=== PATIENT | female | born 1945 | race Caucasian/White ===

== ENCOUNTER 2016-06-11 13:22 | Emergency (ER) | payer MEDICARE, BC ==
[2016-06-11] MEDS ORDERED: Budesonide 0.5 MG/2 ML Neb Susp ONE (13:45)
[2016-06-11] MEDS ORDERED: Levofloxacin 750 MG Tab ONE (13:45)
[2016-06-11] MEDS ORDERED: predniSONE 10 MG Tab ONE (13:45)
--- NOTE | 2016-06-11 14:53 | ER ---
HISTORY OF PRESENT ILLNESS: A 71-year-old lady, here with complaints of a flare up of COPD. She has been having some episodes of shortness of breath and coughing for the last 2 weeks. States this has been on and off. It seemed like it got worse today at one point, but now on the way in to the hospital, she states her symptoms significantly improved again. She has been coughing up phlegm just occasionally, and has noticed wheezing and tightness more routinely. The patient has not been running a fever. She does use oxygen at home at night. She states that she has a DuoNeb treatment that she takes as needed at home. She had been using it 4 times a day yesterday and 2 times a day so far today. She also was on Advair before, but did not like it and quit taking it. PAST MEDICAL HISTORY: COPD. OBJECTIVE: GENERAL APPEARANCE: The patient is awake and alert, in no obvious distress. VITAL SIGNS: Reviewed. O2 sats are in the mid 90s on room air. Blood pressure is good. She is afebrile. PHYSICAL EXAM: Ears, TMs are normal. Nares are patent. Oral mucous membranes are moist. Tonsils are not enlarged or injected. Pharynx not inflamed. NECK: Supple. LUNG: Exam reveals slightly reduced air exchange throughout the lung moran and there are scattered wheezes. I do not hear any rales or rhonchi. SKIN: Warm and dry. DIAGNOSIS: COPD with mild exacerbation. TREATMENT PLAN: We discussed doing labs and a chest x-ray. The patient was also given the option of adjusting her medications and trying this without doing lab workup, and she does not want to do lab tests if not needed. I advised her that she is stable right now without symptoms. I would feel comfortable treating her without any lab or x-ray workup at this time. Medications will be Pulmicort 0.5 mg/unit dose. She is to start on 1 unit dose per nebulizer b.i.d. Also, prednisone will be started at 40 mg daily and Levaquin 750 mg once a day. The patient is to continue taking her DuoNebs q.i.d. Activity should be minimal, as tolerated. She is to continue using oxygen as needed. Followup should be in the clinic. They are to call the clinic on Monday for a followup appointment. Followup should be here sooner p.r.n. CRS/MODL /[id number]
[2016-06-11 16:12] VITALS: BP 132/78
== END 2016-06-11 14:15 | disposition home or self-care (01) ==
LOC: LB.ED 13:22
DX: J44.1 Chronic obstructive pulmonary disease with (acute) exacerbation (principal)
CPT/HCPCS: 99283; A9270; 99282

== ENCOUNTER 2018-05-19 14:01 | Emergency (ER) | payer MEDICARE, BC ==
--- NOTE | 2018-05-19 17:08 | EDM.PDOC ---
ED HPI GENERAL MEDICAL PROBLEM - General Stated Complaint: R LEG PAIN Time Seen by Provider: 05/19/18 14:10 Source of Information: Reports: Patient History Limitations: Reports: No Limitations - History of Present Illness INITIAL COMMENTS - FREE TEXT/NARRATIVE: According to patient she claims that she was walking from kitchen into the living area of the house this morning. She tripped against her treadmill, and her legs twisted around somehow and she fell. Since then she has been having pain in the left thigh. Pain is over the posterior aspect of the right thigh. If she weight bears the pain radiates into her lower buttock. No swelling or bruising of the leg or thigh.. Pain is so severe that she cannot walk, but can weight bear on it. No swelling of the right knee. Pt claims she had hurts her right thigh from a fall about 1 wk ago, and the pain was in the same area but not as bad as today. No other complaints. Onset: Today Severity: Moderate Improves with: Reports: Immobilization Worsens with: Reports: Movement Associated Symptoms: Denies: Confusion, Chest Pain, Cough, Diaphoresis, Fever/ Chills, Headaches, Loss of Appetite, Nausea/Vomiting, Rash, Seizure, Shortness of Breath, Syncope, Weakness - Related Data Allergies Allergy/AdvReac Type Severity Reaction Status Date / Time No Known Allergies Allergy Verified 05/19/18 14:32 Home Meds: Home Meds Aspirin 81 mg PO DAILY 06/11/16 [History] Benazepril/Hydrochlorothiazide [Benazepril-HCTZ 20-12.5 MG] 12.5 - 20 mg PO DAILY 06/11/16 [History] Insulin Aspart [NovoLOG] 4 - 6 units SQ BID 06/11/16 [History] Insulin Aspart [Novolog Flexpen] 2 units SQ DAILY 06/11/16 [History] Insulin Glarg,Human.Rec.Analog [Lantus Solostar] 40 units SQ DAILY 06/11/16 [ History] Metoclopramide [Reglan] 5 mg PO TID 06/11/16 [History] Metoprolol Succinate [Toprol Xl] 100 mg PO DAILY 06/11/16 [History] Omeprazole 20 mg PO DAILY 06/11/16 [History] amLODIPine [Norvasc] 5 mg PO DAILY 06/11/16 [History] atorvaSTATin [Lipitor] 40 mg PO DAILY 06/11/16 [History] buPROPion HCl [Wellbutrin Xl] 300 mg PO DAILY 06/11/16 [History] metFORMIN HCl [Metformin HCl] 500 mg PO TID 06/11/16 [History] Past Medical History Respiratory History: Reports: COPD, SOB, Other (See Below) Other Respiratory History: copd x 15 years, still smokes Genitourinary History: Reports: UTI, Recurrent Other Genitourinary History: on homonal replacement 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: Musculoskeletal History: Reports: Arthritis Psychiatric History: Reports: Depression Endocrine/Metabolic History: Reports: Diabetes, Type II Oncologic (Cancer) History: Reports: Uterine - Infectious Disease History Infectious Disease History: Reports: C-Difficile, Chicken Pox, Measles, Mumps, Pertussis (Whooping Cough), Rubella - Past Surgical History Musculoskeletal Surgical History: Reports: Hip Replacement Social & Family History - Family History Family Medical History: Noncontributory Respiratory: Reports: COPD - Caffeine Use Caffeine Use: Reports: Coffee ED ROS GENERAL - Review of Systems Review Of Systems: See Below Constitutional: Denies: Fever, Chills HEENT: Denies: Dental Pain, Rhinitis, Sinus Problem, Throat Swelling Respiratory: Denies: Cough, Sputum Cardiovascular: Denies: Chest Pain, Lightheadedness GI/Abdominal: Denies: Abdominal Pain, Nausea, Vomiting : Denies: Flank Pain, Frequency Musculoskeletal: Reports: Leg Pain, Muscle Pain Skin: Denies: Bruising, Pruritis, Rash ED EXAM, GENERAL - Physical Exam Exam: See Below Exam Limited By: No Limitations General Appearance: Alert, WD/WN, Mild Distress Eye Exam: Bilateral Eye: EOMI, PERRL Ears: Normal External Exam, Normal Canal, Hearing Grossly Normal, Normal TMs Ear Exam: Bilateral Ear: Auricle Normal, Canal Normal, TM normal Nose: Normal Inspection, Normal Mucosa, No Blood Throat/Mouth: Normal Inspection, Normal Lips, Normal Teeth, Normal Gums, Normal Oropharynx, Normal Voice, No Airway Compromise Head: Atraumatic, Normocephalic Neck: Normal Inspection, Supple, Non-Tender, Full Range of Motion Respiratory/Chest: No Respiratory Distress, Lungs Clear, Normal Breath Sounds, No Accessory Muscle Use, Chest Non-Tender Cardiovascular: Normal Peripheral Pulses, Regular Rate, Rhythm, No Edema, No Gallop, No JVD, No Murmur, No Rub Extremities: Normal Inspection, No Pedal Edema, Normal Capillary Refill, Other ( Right lower extremity: There is no obvious deformtiy of swelling noted over the lower extremity. Normal examination of the ankle. On knee exam, the kne is non tender to palpation. She does have good extension, but flexion of the leg cuase pain in the mid thigh posteriorly. On palpation, pt is tender in the hamstriing muscles in the mid 13. No skin brusing or balling of the muscle. PAinful felxion of the leg. ) Neurological: Alert, Oriented, CN II-XII Intact, Normal Cognition, Normal Gait, Normal Reflexes, No Motor/Sensory Deficits Skin Exam: Warm, Intact Course - Vital Signs Text/Narrative:: Pt appear to have strained her right hamstring muscles. But there is no swelling or bruising. Chance of tear is low. Also flexion of the knee joint causes severe pain in the midthigh posteriorly, which is consistent with hamstring injury. Pt can weight bear, but mild flexion during walking cause severe pain. Pt was reassured that she has strained the hamstring muscle with the fall. Knee brace was applied t prevent flexion of the knee. Advised to walk like a duck. Pt was able to walk without pain. I have advised pt cold compresses for 24 hrs and then alternate heat and cold. Also alternate tylenol with motrin 400mg every 4 hrs for pain. Once pain improve should try physical therapy. Followup in clinic if symptoms worsen. Departure - Departure Time of Disposition: 14:45 Disposition: Home, Self-Care 01 Condition: Fair Clinical Impression: Hamstring muscle strain - Discharge Information *PRESCRIPTION DRUG MONITORING PROGRAM REVIEWED*: Not Applicable *COPY OF PRESCRIPTION DRUG MONITORING REPORT IN PATIENT ALLI: Not Applicable Instructions: Hamstring Strain Referrals: PCP,None [Primary Care Provider] - Additional Instructions: Take Motrin 400mg 3 times a day as needed for pain. May alternate Tylenol with motrin as needed. Apply cold pack fort 15 to 20 minutes every 2 hours for 24 hours then intermitant heat and cold packs as needed for pain. Do not exercise R leg. Keep R leg in brace for 2 weeks. Follow up Monday for Physical Therapy. Wear leg brace to keep R leg straight. - Problem List & Annotations (1) Hamstring muscle strain SNOMED Code(s): 688457542498 Code(s): S76.319A - STRAIN OF MSL/FASC/TND POST GRP AT THI LEV, UNSP THIGH, INIT Status: Acute - Problem List Review Problem List Initiated/Reviewed/Updated: Yes - Assessment/Plan Assessment:: Right hamstring strain Plan: Pt appear to have strained her right hamstring muscles. But there is no swelling or bruising. Chance of tear is low. Also flexion of the knee joint causes severe pain in the midthigh posteriorly, which is consistent with hamstring injury. Pt can weight bear, but mild flexion during walking cause severe pain. Pt was reassured that she has strained the hamstring muscle with the fall. Knee brace was applied t prevent flexion of the knee. Advised to walk like a duck. Pt was able to walk without pain. I have advised pt cold compresses for 24 hrs and then alternate heat and cold. Also alternate tylenol with motrin 400mg every 4 hrs for pain. Once pain improve should try physical therapy. Followup in clinic if symptoms worsen.
== END 2018-05-19 14:42 | disposition home or self-care (01) ==
LOC: LB.ED 14:01
DX: S76.311A Strain of muscle, fascia and tendon of the posterior muscle group at thigh level, right thigh, initial encounter (principal); E11.9 Type 2 diabetes mellitus without complications; F32.9 Major depressive disorder, single episode, unspecified; F17.200 Nicotine dependence, unspecified, uncomplicated; Z79.4 Long term (current) use of insulin; Z79.899 Other long term (current) drug therapy; W22.8XXA Striking against or struck by other objects, initial encounter
CPT/HCPCS: 99283

== ENCOUNTER 2020-01-07 09:35 | Emergency (ER) | payer BC, MEDICARE ==
[2020-01-07] MEDS ORDERED: Albuterol/Ipratropium 3.0-0.5 MG/3 ML Neb Soln NEB PRN (12:23)
--- NOTE | 2020-01-07 12:26 | CR ---
DATE OF SERVICE: 01/07/2020 CLINICAL DATA: SOB AP chest: Comparison is made to a prior exam dated 14 November 2017. The heart size is normal. There is calcifications of the aortic arch. The lungs are clear. No pneumothorax. No pleural effusions. No evidence of acute intrathoracic disease. MTDD
--- NOTE | 2020-01-07 13:39 | EDM.PDOC ---
ED HPI GENERAL MEDICAL PROBLEM - General Chief Complaint: General Stated Complaint: SHORTNESS OF BREATH Time Seen by Provider: 01/07/20 11:54 Source of Information: Reports: Patient History Limitations: Reports: No Limitations - History of Present Illness INITIAL COMMENTS - FREE TEXT/NARRATIVE: Patient arrives via EMS with increased SOB and cough. SHe has had cold symptoms x 6 days. Currently being treated for UTI with keflex TID. Denies fever, CP, abdominal pain. Patient is a smoker and continues. PMH: COPD on 2-3L O2 at home, CHF. Improves with: Reports: None Worsens with: Reports: Movement - Related Data Allergies Allergy/AdvReac Type Severity Reaction Status Date / Time No Known Allergies Allergy Verified 05/19/18 14:32 Home Meds: Home Meds Aspirin 81 mg PO DAILY 06/11/16 [History] Benazepril/Hydrochlorothiazide [Benazepril-HCTZ 20-12.5 MG] 12.5 - 20 mg PO DAILY 06/11/16 [History] Insulin Aspart [NovoLOG] 4 - 6 units SQ BID 06/11/16 [History] Insulin Aspart [Novolog Flexpen] 2 units SQ DAILY 06/11/16 [History] Insulin Glarg,Human.Rec.Analog [Lantus Solostar] 40 units SQ DAILY 06/11/16 [History] Metoclopramide [Reglan] 5 mg PO TID 06/11/16 [History] Metoprolol Succinate [Toprol Xl] 100 mg PO DAILY 06/11/16 [History] Omeprazole 20 mg PO DAILY 06/11/16 [History] amLODIPine [Norvasc] 5 mg PO DAILY 06/11/16 [History] atorvaSTATin [Lipitor] 40 mg PO DAILY 06/11/16 [History] buPROPion HCL [Wellbutrin Xl] 300 mg PO DAILY 06/11/16 [History] metFORMIN HCl [Metformin HCl] 500 mg PO TID 06/11/16 [History] Past Medical History Respiratory History: Reports: COPD, SOB, Other (See Below) Other Respiratory History: copd x 15 years, still smokes Genitourinary History: Reports: UTI, Recurrent Other Genitourinary History: on homonal replacement cream vaginally and 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: Musculoskeletal History: Reports: Arthritis Psychiatric History: Reports: Depression Endocrine/Metabolic History: Reports: Diabetes, Type II Oncologic (Cancer) History: Reports: Uterine - Infectious Disease History Infectious Disease History: Reports: C-Difficile, Chicken Pox, Measles, Mumps, Pertussis (Whooping Cough), Rubella - Past Surgical History Musculoskeletal Surgical History: Reports: Hip Replacement Social & Family History - Family History Family Medical History: Noncontributory Respiratory: Reports: COPD - Tobacco Use Tobacco Use Status *Q: Current Every Day Tobacco User Years of Tobacco use: 60 Packs/Tins Daily: 0.5 - Caffeine Use Caffeine Use: Reports: Coffee - Recreational Drug Use Recreational Drug Use: No ED ROS GENERAL - Review of Systems Review Of Systems: See Below Constitutional: Reports: No Symptoms HEENT: Reports: No Symptoms Respiratory: Reports: Shortness of Breath, Cough, Sputum Cardiovascular: Reports: Dyspnea on Exertion Endocrine: Reports: No Symptoms GI/Abdominal: Reports: No Symptoms : Reports: No Symptoms, Other (symptom free but being treated for UTI with keflex) Musculoskeletal: Reports: No Symptoms Skin: Reports: No Symptoms Neurological: Reports: No Symptoms Psychiatric: Reports: No Symptoms Hematologic/Lymphatic: Reports: No Symptoms ED EXAM, GENERAL - Physical Exam Exam: See Below Exam Limited By: No Limitations General Appearance: Alert, No Apparent Distress Nose: Normal Inspection, No Blood Throat/Mouth: Normal Inspection, Normal Oropharynx, Normal Voice, No Airway Compromise Head: Atraumatic Neck: Normal Inspection, Full Range of Motion Respiratory/Chest: Lungs Clear, Normal Breath Sounds, No Accessory Muscle Use Cardiovascular: Normal Peripheral Pulses, Regular Rate, Rhythm, No Edema, No JVD, No Murmur Peripheral Pulses: 3+: Radial (L), Radial (R), Posterior Tibial (L), Posterior Tibial (R), Dorsalis Pedis (L), Dorsalis Pedis (R) GI/Abdominal: Normal Bowel Sounds, Soft Back Exam: Normal Inspection, Full Range of Motion, CVA Tenderness (R), CVA Tenderness (L) Extremities: Normal Inspection, Normal Range of Motion, Non-Tender, No Pedal Edema Neurological: Alert, Oriented, Normal Cognition, Normal Gait, No Motor/Sensory Deficits Psychiatric: Normal Affect, Normal Mood Skin Exam: Warm, Dry, Intact Lymphatic: No Adenopathy Course - Vital Signs Last Recorded V/S: Last Vital Signs Temp 97.3 F 01/07/20 11:52 Pulse 80 01/07/20 13:40 Resp 20 01/07/20 11:52 BP 156/68 H 01/07/20 13:40 Pulse Ox 93 L 01/07/20 11:52 - Orders/Labs/Meds Orders: Active Orders 24 hr Category Date Time Status EKG Documentation Completion [RC] ASDIRECTED Care 01/07/20 11:14 Active RT Aerosol Therapy [RC] ASDIRECTED Care 01/07/20 12:23 Active Albuterol/Ipratropium [DuoNeb 3.0-0.5 MG/3 ML] Med 01/07/20 12:23 Active 3 ml NEB Q6H PRN Medication Orders Albuterol/Ipratropium (Duoneb 3.0-0.5 Mg/3 Ml) 3 ml NEB Q6H PRN PRN Reason: Shortness of Breath Labs: Laboratory Tests 01/07/20 01/07/20 01/07/20 Range/Units 10:44 11:39 11:39 WBC 10.0 (4.0-11.0) K/uL RBC 4.39 (3.80-5.80) M/uL Hgb 14.5 (11.5-16.5) g/dL Hct 43.3 (37.0-47.0) % MCV 99 H (76-96) fL MCH 33.0 H (27.0-32.0) pg MCHC 33.5 (31.0-35.0) g/dL RDW 12.5 (11.0-16.0) % Plt Count 393 (150-500) K/uL MPV 9.8 (6.0-10.0) fL Neut % (Auto) 77.8 H (45.0-70.0) % Lymph % (Auto) 12.8 L (20.0-40.0) % [place] % (Auto) 5.6 (3.0-10.0) % Eos % (Auto) 3.7 (1.0-5.0) % Baso % (Auto) 0.1 (0.0-0.5) % Neut # (Auto) 7.81 H (2.00-7.50) K/uL Lymph # (Auto) 1.28 L (1.50-4.00) K/uL [place] # (Auto) 0.56 (0.20-0.80) K/uL Eos # (Auto) 0.37 (0.04-0.40) K/uL Baso # (Auto) 0.01 L (0.02-0.10) K/uL Sodium 139 (136-145) mmol/L Potassium 4.3 (3.5-5.1) mmol/L Chloride 99 (98-107) mmol/L Carbon Dioxide 30.4 (21.0-32.0) mmol/L Anion Gap 13.9 (5.0-15.0) mmol/L BUN 11 D (8-26) mg/dL Creatinine 0.82 (0.55-1.02) mg/dL Est Cr Clr Drug Dosing TNP Estimated GFR (MDRD) > 60 (>60) MLS/MIN BUN/Creatinine Ratio 13.4 (6-25) Glucose 268 H D (74-100) mg/dL Lactic Acid (0.4-2.0) mmol/L Calcium 9.3 (8.5-10.1) mg/dL Total Bilirubin 0.4 (0.0-1.0) mg/dL AST 22 (15-37) U/L ALT 32 (12-78) U/L Alkaline Phosphatase 111 (46-116) U/L Troponin I (0.000-0.060) ng/mL B-Natriuretic Peptide 393 H (0-125) pg/mL Total Protein 7.5 (6.4-8.2) g/dL Albumin 3.4 (3.4-5.0) g/dL Globulin 4.1 (2.2-4.2) g/dL Albumin/Globulin Ratio 0.8 (0.8-2.0) Urine Color Urine Appearance (CLEAR) Urine pH (5.0-8.0) Ur Specific [place] (1.003-1.030) Urine Protein (NEGATIVE) mg/dL Urine Glucose (UA) (NEGATIVE) mg/dL Urine Ketones (NEGATIVE) mg/dL Urine Occult Blood (NEGATIVE) Urine Nitrite (NEGATIVE) Urine Bilirubin (NEGATIVE) Urine Urobilinogen (0.2-1.0) E.U./dL Ur Leukocyte Esterase (NEGATIVE) Urine RBC /HPF Urine WBC /HPF Ur Squamous Epith Cells /HPF SARS CoV-2 RNA Rapid DIRK Negative 01/07/20 01/07/20 01/07/20 Range/Units 11:39 11:39 12:23 WBC (4.0-11.0) K/uL RBC (3.80-5.80) M/uL Hgb (11.5-16.5) g/dL Hct (37.0-47.0) % MCV (76-96) fL MCH (27.0-32.0) pg MCHC (31.0-35.0) g/dL RDW (11.0-16.0) % Plt Count (150-500) K/uL MPV (6.0-10.0) fL Neut % (Auto) (45.0-70.0) % Lymph % (Auto) (20.0-40.0) % [place] % (Auto) (3.0-10.0) % Eos % (Auto) (1.0-5.0) % Baso % (Auto) (0.0-0.5) % Neut # (Auto) (2.00-7.50) K/uL Lymph # (Auto) (1.50-4.00) K/uL [place] # (Auto) (0.20-0.80) K/uL Eos # (Auto) (0.04-0.40) K/uL Baso # (Auto) (0.02-0.10) K/uL Sodium (136-145) mmol/L Potassium (3.5-5.1) mmol/L Chloride (98-107) mmol/L Carbon Dioxide (21.0-32.0) mmol/L Anion Gap (5.0-15.0) mmol/L BUN (8-26) mg/dL Creatinine (0.55-1.02) mg/dL Est Cr Clr Drug Dosing Estimated GFR (MDRD) (>60) MLS/MIN BUN/Creatinine Ratio (6-25) Glucose (74-100) mg/dL Lactic Acid 1.8 (0.4-2.0) mmol/L Calcium (8.5-10.1) mg/dL Total Bilirubin (0.0-1.0) mg/dL AST (15-37) U/L ALT (12-78) U/L Alkaline Phosphatase (46-116) U/L Troponin I < 0.017 (0.000-0.060) ng/mL B-Natriuretic Peptide (0-125) pg/mL Total Protein (6.4-8.2) g/dL Albumin (3.4-5.0) g/dL Globulin (2.2-4.2) g/dL Albumin/Globulin Ratio (0.8-2.0) Urine Color Yellow Urine Appearance Clear (CLEAR) Urine pH 6.0 (5.0-8.0) Ur Specific [place] 1.020 (1.003-1.030) Urine Protein 30 H (NEGATIVE) mg/dL Urine Glucose (UA) 100 H (NEGATIVE) mg/dL Urine Ketones Negative (NEGATIVE) mg/dL Urine Occult Blood Trace-intact H (NEGATIVE) Urine Nitrite Negative (NEGATIVE) Urine Bilirubin Negative (NEGATIVE) Urine Urobilinogen 0.2 (0.2-1.0) E.U./dL Ur Leukocyte Esterase Negative (NEGATIVE) Urine RBC Not seen /HPF Urine WBC 0-5 H /HPF Ur Squamous Epith Cells Moderate /HPF SARS CoV-2 RNA Rapid DIRK Meds: Medications Generic Name Dose Route Start Last Admin Trade Name Freq PRN Reason Stop Dose Admin Albuterol/Ipratropium 3 ml 01/07/20 12:23 Duoneb 3.0-0.5 Mg/3 Ml NEB Q6H PRN Shortness of Breath Departure - Departure Time of Disposition: 15:15 Disposition: Home, Self-Care 01 Clinical Impression: Upper respiratory infection, acute - Discharge Information *PRESCRIPTION DRUG MONITORING PROGRAM REVIEWED*: Not Applicable *COPY OF PRESCRIPTION DRUG MONITORING REPORT IN PATIENT ALLI: Not Applicable Instructions: Upper Respiratory Infection, Adult, [id number] Referrals: PCP,None [Primary Care Provider] - Forms: ED Department Discharge Additional Instructions: Stop taking the keflex and start the levofloxin and probiotic. Keep your O2 on at home, but REMOVE it and turn it off if you are going to smoke. Try not to smoke. Return to ED for any increased or new concerning symptoms. Follow up with your primary doctor this week if symptoms persist. Sepsis Event Note (ED) - Evaluation Sepsis Screening Result: No Definite Risk - Focused Exam Vital Signs: Vital Signs Temp Pulse Resp BP Pulse Ox 01/07/20 13:40 80 156/68 H 01/07/20 11:52 97.3 F 73 20 122/67 93 L 01/07/20 11:10 85 20 187/81 H 93 L - My Orders Last 24 Hours: My Active Orders 01/07/20 11:14 EKG Documentation Completion [RC] ASDIRECTED 01/07/20 12:23 RT Aerosol Therapy [RC] ASDIRECTED Albuterol/Ipratropium [DuoNeb 3.0-0.5 MG/3 ML] 3 ml NEB Q6H PRN - Assessment/Plan Last 24 Hours: My Active Orders 01/07/20 11:14 EKG Documentation Completion [RC] ASDIRECTED 01/07/20 12:23 RT Aerosol Therapy [RC] ASDIRECTED Albuterol/Ipratropium [DuoNeb 3.0-0.5 MG/3 ML] 3 ml NEB Q6H PRN Assessment:: patient ambulated with sats remaining iin the 93-94%. She will be DC home and started on levofloxin Qday x 5 days and a probiotic. She is agreeable to the plan and is trying to find a ride home. Plan: Levofloxiasin and probiotic called into [facility] for [facility].
== END 2020-01-07 15:37 | disposition home or self-care (01) ==
LOC: LB.ED 09:35
DX: J06.9 Acute upper respiratory infection, unspecified (principal); Z20.828 Contact with and (suspected) exposure to other viral communicable diseases; J44.9 Chronic obstructive pulmonary disease, unspecified; E11.9 Type 2 diabetes mellitus without complications; F17.210 Nicotine dependence, cigarettes, uncomplicated; F32.9 Major depressive disorder, single episode, unspecified; Z79.899 Other long term (current) drug therapy; Z79.82 Long term (current) use of aspirin; Z79.4 Long term (current) use of insulin
CPT/HCPCS: 36415; 71045; 80053; 81001; 83605; 83880; 84484; 85025; 93005; 99285-25; U0002

== ENCOUNTER 2020-01-08 16:15 | Observation (INO) | payer MEDICARE ==
[2020-01-08] MEDS ORDERED: Albuterol/Ipratropium 3.0-0.5 MG/3 ML Neb Soln NEB PRN (17:50)
[2020-01-08] MEDS ORDERED: Ondansetron 4 MG/2 ML SDV IVPUSH PRN (17:51)
[2020-01-08] MEDS: Sodium Chloride 0.9% 1,000 ML IV SCH (18:45)
--- NOTE | 2020-01-08 19:50 | HP ---
REASON FOR EMERGENCY ROOM VISIT: Shortness of breath with nausea and vomiting. HISTORY: This 74-year-old woman was seen yesterday in the emergency department with cold- like symptoms that have been lasting for approximately 6 days. She was being treated at that time for a UTI with Keflex t.i.d. It was felt that she was experiencing an upper respiratory infection and her Keflex was switched to levofloxacin along with probiotic. She was given a DuoNeb treatment here. She is known to have COPD and problems with recurrent urinary tract infections. At home, she normally is on 3 L of oxygen per nasal cannula, mainly at night and as needed. She was given 1 DuoNeb treatment here and sent home. Since then, she has had some continued shortness of breath, which she states is a chronic problem for her. She has also had coughing and has had a few episodes where she had a small amount of posttussive emesis. She denies any urinary symptoms at this time. She has not had any fever or chills. She denies any diarrhea. She states that she has not been eating very much because her appetite is decreased. She does live alone and has apparently been increasingly fearful of this fact. For this reason, she called a social media marketing analyst today who advised her to come in and be evaluated again. PAST MEDICAL HISTORY: Significant for, 1. COPD. 2. Recurrent urinary tract infections. 3. Type 2 diabetes. 4. Hypertension. 5. Hyperlipidemia. 6. GERD. MEDICATIONS: Include the following, 1. One baby aspirin per day. 2. Benazepril/hydrochlorothiazide 20/12.5 mg one p.o. daily. 3. Insulin (see EMR). 4. Reglan 5 mg p.o. t.i.d. p.r.n. 5. Metoprolol succinate 100 mg p.o. daily. 6. Omeprazole 20 mg p.o. daily. 7. Amlodipine 5 mg p.o. daily. 8. Atorvastatin 40 mg p.o. daily. 9. Bupropion HCL 300 mg p.o. daily. 10.Metformin 500 mg p.o. t.i.d. SOCIAL HISTORY: She lives alone. She is an active smoker at this time. She denies any significant alcohol use or recreational drug use. REVIEW OF SYSTEMS: Pertinent positives and negatives as listed in the HPI. PHYSICAL EXAMINATION: GENERAL: She is afebrile. Blood pressure is 95/72, respiratory rate 18, O2 sats 97% on 2 L per nasal cannula of O2, heart rate 81. HEENT: No scleral icterus or conjunctivitis is noted. Oropharynx is unremarkable. NECK: Supple. No adenopathy. No JVD is noted. CHEST: She does have a few scattered expiratory wheezes. No rales or rhonchi are heard. Breath sounds are equal bilaterally, but somewhat diminished consistent with COPD. CARDIAC: Regular rate without murmur. ABDOMEN: Nondistended. Bowel sounds are present. Soft and nontender. No hepatosplenomegaly. No CVA tenderness. EXTREMITIES: [place] and warm with no significant edema. NEUROLOGIC: She is alert and oriented x3. Cranial nerves 2 through 12 are intact. Muscle strength, bulk, and tone are equal bilaterally in the upper and lower extremities. Sensory exam normal to crude touch. IMPRESSION: acute exacerbation of chronic obstructive pulmonary disease. PLAN: She lives alone and is unable to take care of herself, and her appetite is decreased. I suspect she could easily get dehydrated. We will admit her to the hospital. I will continue her on her Levaquin for the time being. She was checked for COVID-19 yesterday. We will repeat that. We will check a chest x-ray, a CBC, a BMP, and a repeat UA. We will gently keep her rehydrated with normal saline at 75 mL an hour and she will be given Zofran as needed for nausea and vomiting. She understands and agrees with this plan. I think it is going to be important to get social workers involved with alternative living arrangements such as assisted living or fdc. OC RUDDY
[2020-01-08] MEDS ORDERED: Prochlorperazine 10 MG in Sodium Chloride 0.9% 50 ML IV PRN (22:41)
[2020-01-09] MEDS: Sodium Chloride 0.9% 1,000 ML IV SCH (07:33)
[2020-01-09] MEDS ORDERED: Levofloxacin/Dextrose 5%-Water 500 MG in Premix Bag 1 BAG IV SCH (08:00)
[2020-01-09] MEDS: Levofloxacin/Dextrose 5%-Water 100 ML IV SCH (08:03)
[2020-01-09] MEDS: Benazepril 10 MG Tab PO SCH (11:18)
[2020-01-09] MEDS: atorvaSTATin 40 MG Tab PO SCH (11:18)
[2020-01-09] MEDS: buPROPion 300 MG Tab.ER PO SCH (11:18)
[2020-01-09] MEDS: amLODIPine 5 MG Tab PO SCH (11:18)
[2020-01-09] MEDS: Metoclopramide 5 MG Tab PO SCH ×3 (11:18→19:44)
[2020-01-09] MEDS: Aspirin 325 MG Tab.EC PO SCH (11:18)
[2020-01-09] MEDS: Metoprolol Succinate 100 MG Tab.ER PO SCH (11:19)
[2020-01-09] MEDS: metFORMIN 500 MG Tab PO SCH ×2 (11:19→17:13)
--- NOTE | 2020-01-09 11:20 | CR ---
DATE OF SERVICE: 01/09/20 CLINICAL DATA: SOB PA AND LATERAL CHEST: Comparison is made to a prior exam dated 01/07/20. The heart size is normal. There is calcification of the aortic arch. The lungs are mildly hyperexpanded, but clear. No pneumothorax. No pleural effusions. There is degenerative disc disease throughout the thoracic spine. No evidence of acute intrathoracic disease. [id number] [facility]
[2020-01-09] MEDS: Omeprazole 20 MG Cap.CR PO SCH (11:24)
[2020-01-09] MEDS: Hydrochlorothiazide 12.5 MG Cap PO SCH (11:26)
--- NOTE | 2020-01-09 14:24 | PCM.PN ---
- General Info Date of Service: 01/09/20 Subjective Update: Patient feeling well today and has a good appetite. She is alert and cooperative. Denies any pain or issues. - Review of Systems General: Reports: Weakness HEENT: Reports: No Symptoms Pulmonary: Reports: No Symptoms Cardiovascular: Reports: No Symptoms Gastrointestinal: Reports: No Symptoms Genitourinary: Reports: No Symptoms Psychiatric: Reports: No Symptoms - Patient Data Vitals - Most Recent: Last Vital Signs Temp 36.2 C 01/09/20 11:46 Pulse 68 01/09/20 11:46 Resp 16 01/09/20 11:46 BP 128/64 01/09/20 11:46 Pulse Ox 95 01/09/20 11:46 Weight - Most Recent: 58.06 kg I&O - Last 24 Hours: Intake & Output 01/08/20 01/09/20 01/09/20 22:59 06:59 14:59 Intake Total 1152 Output Total 60 350 Balance -60 802 Lab Results Last 24 Hours: Laboratory Results - last 24 hr 01/08/20 01/08/20 01/09/20 Range/Units 18:11 20:12 06:41 WBC (4.0-11.0) K/uL RBC (3.80-5.80) M/uL Hgb (11.5-16.5) g/dL Hct (37.0-47.0) % MCV (76-96) fL MCH (27.0-32.0) pg MCHC (31.0-35.0) g/dL RDW (11.0-16.0) % Plt Count (150-500) K/uL MPV (6.0-10.0) fL Neut % (Auto) (45.0-70.0) % Lymph % (Auto) (20.0-40.0) % [place] % (Auto) (3.0-10.0) % Eos % (Auto) (1.0-5.0) % Baso % (Auto) (0.0-0.5) % Neut # (Auto) (2.00-7.50) K/uL Lymph # (Auto) (1.50-4.00) K/uL [place] # (Auto) (0.20-0.80) K/uL Eos # (Auto) (0.04-0.40) K/uL Baso # (Auto) (0.02-0.10) K/uL Sodium (136-145) mmol/L Potassium (3.5-5.1) mmol/L Chloride (98-107) mmol/L Carbon Dioxide (21.0-32.0) mmol/L Anion Gap (5.0-15.0) mmol/L BUN (8-26) mg/dL Creatinine (0.55-1.02) mg/dL Est Cr Clr Drug Dosing mL/min Estimated GFR (MDRD) (>60) MLS/MIN BUN/Creatinine Ratio (6-25) Glucose (74-100) mg/dL POC Glucose 120 H 165 H (74-110) mg/dL Calcium (8.5-10.1) mg/dL Urine Color Urine Appearance (CLEAR) Urine pH (5.0-8.0) Ur Specific Mcgill (1.003-1.030) Urine Protein (NEGATIVE) mg/dL Urine Glucose (UA) (NEGATIVE) mg/dL Urine Ketones (NEGATIVE) mg/dL Urine Occult Blood (NEGATIVE) Urine Nitrite (NEGATIVE) Urine Bilirubin (NEGATIVE) Urine Urobilinogen (0.2-1.0) E.U./dL Ur Leukocyte Esterase (NEGATIVE) SARS CoV-2 RNA Rapid DIRK Negative 01/09/20 01/09/20 01/09/20 Range/Units 07:00 07:50 07:50 WBC 8.4 (4.0-11.0) K/uL RBC 3.83 (3.80-5.80) M/uL Hgb 12.9 (11.5-16.5) g/dL Hct 38.0 (37.0-47.0) % MCV 99 H (76-96) fL MCH 33.7 H (27.0-32.0) pg MCHC 33.9 (31.0-35.0) g/dL RDW 12.3 (11.0-16.0) % Plt Count 327 (150-500) K/uL MPV 9.3 (6.0-10.0) fL Neut % (Auto) 81.7 H (45.0-70.0) % Lymph % (Auto) 11.3 L (20.0-40.0) % [place] % (Auto) 6.0 (3.0-10.0) % Eos % (Auto) 0.8 L (1.0-5.0) % Baso % (Auto) 0.2 (0.0-0.5) % Neut # (Auto) 6.88 (2.00-7.50) K/uL Lymph # (Auto) 0.95 L (1.50-4.00) K/uL [place] # (Auto) 0.51 (0.20-0.80) K/uL Eos # (Auto) 0.07 (0.04-0.40) K/uL Baso # (Auto) 0.02 (0.02-0.10) K/uL Sodium 136 (136-145) mmol/L Potassium 4.5 (3.5-5.1) mmol/L Chloride 100 (98-107) mmol/L Carbon Dioxide 29.1 (21.0-32.0) mmol/L Anion Gap 11.4 (5.0-15.0) mmol/L BUN 20 D (8-26) mg/dL Creatinine 0.92 (0.55-1.02) mg/dL Est Cr Clr Drug Dosing 39.12 mL/min Estimated GFR (MDRD) 60 (>60) MLS/MIN BUN/Creatinine Ratio 21.7 (6-25) Glucose 167 H D (74-100) mg/dL POC Glucose (74-110) mg/dL Calcium 8.2 L (8.5-10.1) mg/dL Urine Color Yellow Urine Appearance Clear (CLEAR) Urine pH 5.5 (5.0-8.0) Ur Specific Mcgill >= 1.030 (1.003-1.030) Urine Protein Negative (NEGATIVE) mg/dL Urine Glucose (UA) 100 H (NEGATIVE) mg/dL Urine Ketones Trace H (NEGATIVE) mg/dL Urine Occult Blood Negative (NEGATIVE) Urine Nitrite Negative (NEGATIVE) Urine Bilirubin Negative (NEGATIVE) Urine Urobilinogen 0.2 (0.2-1.0) E.U./dL Ur Leukocyte Esterase Negative (NEGATIVE) SARS CoV-2 RNA Rapid DIRK 01/09/20 Range/Units 10:20 WBC (4.0-11.0) K/uL RBC (3.80-5.80) M/uL Hgb (11.5-16.5) g/dL Hct (37.0-47.0) % MCV (76-96) fL MCH (27.0-32.0) pg MCHC (31.0-35.0) g/dL RDW (11.0-16.0) % Plt Count (150-500) K/uL MPV (6.0-10.0) fL Neut % (Auto) (45.0-70.0) % Lymph % (Auto) (20.0-40.0) % [place] % (Auto) (3.0-10.0) % Eos % (Auto) (1.0-5.0) % Baso % (Auto) (0.0-0.5) % Neut # (Auto) (2.00-7.50) K/uL Lymph # (Auto) (1.50-4.00) K/uL [place] # (Auto) (0.20-0.80) K/uL Eos # (Auto) (0.04-0.40) K/uL Baso # (Auto) (0.02-0.10) K/uL Sodium (136-145) mmol/L Potassium (3.5-5.1) mmol/L Chloride (98-107) mmol/L Carbon Dioxide (21.0-32.0) mmol/L Anion Gap (5.0-15.0) mmol/L BUN (8-26) mg/dL Creatinine (0.55-1.02) mg/dL Est Cr Clr Drug Dosing mL/min Estimated GFR (MDRD) (>60) MLS/MIN BUN/Creatinine Ratio (6-25) Glucose (74-100) mg/dL POC Glucose 228 H (74-110) mg/dL Calcium (8.5-10.1) mg/dL Urine Color Urine Appearance (CLEAR) Urine pH (5.0-8.0) Ur Specific [place]ill (1.003-1.030) Urine Protein (NEGATIVE) mg/dL Urine Glucose (UA) (NEGATIVE) mg/dL Urine Ketones (NEGATIVE) mg/dL Urine Occult Blood (NEGATIVE) Urine Nitrite (NEGATIVE) Urine Bilirubin (NEGATIVE) Urine Urobilinogen (0.2-1.0) E.U./dL Ur Leukocyte Esterase (NEGATIVE) SARS CoV-2 RNA Rapid DIRK Med Orders - Current: Current Medications Albuterol/Ipratropium (Duoneb 3.0-0.5 Mg/3 Ml) 3 ml NEB Q6H PRN PRN Reason: Shortness of Breath Last Admin: 01/08/20 19:37 Dose: 3 ml Documented by: Amlodipine Besylate (Norvasc) 5 mg PO DAILY COUNTS INCLUDE 234 BEDS AT THE [facility] Last Admin: 01/09/20 11:18 Dose: 5 mg Documented by: Aspirin (Ecotrin) 325 mg PO DAILY COUNTS INCLUDE 234 BEDS AT THE [facility] Last Admin: 01/09/20 11:18 Dose: 325 mg Documented by: Atorvastatin Calcium (Lipitor) 40 mg PO DAILY COUNTS INCLUDE 234 BEDS AT THE [facility] Last Admin: 01/09/20 11:18 Dose: 40 mg Documented by: Benazepril HCl (Lotensin) 20 mg PO DAILY COUNTS INCLUDE 234 BEDS AT THE [facility] Last Admin: 01/09/20 11:18 Dose: 20 mg Documented by: Bupropion HCl (Wellbutrin Xl) 300 mg PO DAILY COUNTS INCLUDE 234 BEDS AT THE [facility] Last Admin: 01/09/20 11:18 Dose: 300 mg Documented by: Hydrochlorothiazide (Hydrochlorothiazide) 12.5 mg PO DAILY COUNTS INCLUDE 234 BEDS AT THE [facility] Last Admin: 01/09/20 11:26 Dose: 12.5 mg Documented by: Prochlorperazine Edisylate 10 (mg/ Sodium Chloride) 52 mls @ 150 mls/hr IV Q6H PRN PRN Reason: Nausea/Vomiting Last Admin: 01/08/20 23:06 Dose: 150 mls/hr Documented by: Levofloxacin/Dextrose (Levaquin In D5w 500 Mg/100 Ml) 100 mls @ 100 mls/hr IV DAILY COUNTS INCLUDE 234 BEDS AT THE [facility] Last Admin: 01/09/20 08:03 Dose: 100 mls/hr Documented by: Metformin HCl (Glucophage) 500 mg PO TIDMEALS COUNTS INCLUDE 234 BEDS AT THE [facility] Last Admin: 01/09/20 11:19 Dose: 500 mg Documented by: Metoclopramide HCl (Reglan) 5 mg PO TID COUNTS INCLUDE 234 BEDS AT THE [facility] Last Admin: 01/09/20 14:11 Dose: 5 mg Documented by: Metoprolol Succinate (Toprol Xl) 100 mg PO DAILY COUNTS INCLUDE 234 BEDS AT THE [facility] Last Admin: 01/09/20 11:19 Dose: 100 mg Documented by: Omeprazole (Omeprazole) 20 mg PO ACBREAKFAST COUNTS INCLUDE 234 BEDS AT THE [facility] Last Admin: 01/09/20 11:24 Dose: 20 mg Documented by: Ondansetron HCl (Zofran) 4 mg IVPUSH Q6H PRN PRN Reason: Nausea/Vomiting Last Admin: 01/08/20 18:23 Dose: 4 mg Documented by: Discontinued Medications Sodium Chloride (Normal Saline) 1,000 mls @ 75 mls/hr IV ASDIRECTED TUNG Last Admin: 01/09/20 07:33 Dose: 75 mls/hr Documented by: - Exam General: Alert, Cooperative HEENT: Pupils Equal, Pupils Reactive, EOMI Neck: Supple Lungs: Clear to Auscultation, Normal Respiratory Effort Cardiovascular: Regular Rate, Regular Rhythm Extremities: Normal Inspection Sepsis Event Note - Evaluation Sepsis Screening Result: No Definite Risk - Focused Exam Vital Signs: Vital Signs Temp Pulse Pulse Resp BP BP Pulse Ox 01/09/20 11:46 36.2 C 68 16 128/64 95 01/09/20 11:19 68 128/64 01/09/20 11:18 128/64 01/09/20 07:50 36.3 C 63 16 148/75 H 97 01/09/20 04:15 69 15 142/62 H 93 L - Problem List & Annotations (1) Dehydration SNOMED Code(s): 91168148 Code(s): E86.0 - DEHYDRATION Status: Acute Priority: High Current Visit: Yes (2) Severe muscle deconditioning SNOMED Code(s): 748264856 Code(s): R29.898 - OTH SYMPTOMS AND SIGNS INVOLVING THE MUSCULOSKELETAL SYSTEM Status: Acute Priority: High Current Visit: Yes (3) COPD with exacerbation SNOMED Code(s): 916793349, 300788737 Code(s): J44.1 - CHRONIC OBSTRUCTIVE PULMONARY DISEASE W (ACUTE) EXACERBATION Status: Acute Priority: High Current Visit: Yes Onset Date: ~06/11/16 Annotation/Comment:: 06/11/16 - COPD with mild exacerbation - Problem List Review Problem List Initiated/Reviewed/Updated: Yes - Plan Plan:: Patient to continue to be monitored. Plan of care for patient to be discharged to care of Grand-daughter who lives in [place] on Sat 11am.
--- NOTE | 2020-01-09 14:25 | PN ---
DATE OF VISIT: 01/09/2020 HISTORY OF PRESENT ILLNESS: Laura had some nausea and vomited at least once last evening. She received 1 dose of Compazine, but has not had any further episodes of nausea or vomiting. She did have 1 bowel this morning. From a respiratory standpoint, she seems to have improved. She did receive 1 DuoNeb treatment last evening. She is not significantly short of breath this morning, which is an improvement over last night. Overall, she feels better and her appetite has returned. She did have 1 bowel movement this morning. OBJECTIVE: VITAL SIGNS: Stable. She is afebrile. Blood pressure 148/75, heart rate of 63, respiratory rate 16. Her O2 sats 97% on 2 L of oxygen per nasal cannula. CHEST: Clear to auscultation this morning with no more expiratory Wheezes. CARDIAC: Regular rate without murmur. ABDOMEN: She has normal bowel sounds. It is soft. She has some discomfort on deep palpation or across her lower abdomen, but no real tenderness. No palpable masses. LABORATORY DATA: Her CBC was normal. Her BMP was normal except her glucose was 167. Her COVID-19 test was negative last night. Her chest x-ray shows no active pulmonary disease and no evidence of pneumonia. UA is pending at this time. IMPRESSION: Overall improved. PLAN: We will discontinue her IV fluids and keep her in as a heparin lock for her Levaquin and any other medication she may need. She is back on her home medications. Now, we will observe her throughout the course the day and Vehicle Upholsterer is working on some living arrangement alternatives. She understands and agrees with this plan. OC /[id number]
--- NOTE | 2020-01-10 07:25 | PN ---
DATE OF VISIT: 01/09/2020 ADDENDUM: To the progress note. I spoke to the social media assistant today and arrangements are being made for Ms. Skinner to live with her niece at home. She indicated that some arrangements will have to be made, moving furniture around and making additional arrangements, etc., but that she should be able to take her within the next day or 2. It is my feeling that the patient may well be experiencing some manifestations of early dementia and is getting intermittently confused and this has been leading to some episodes where she becomes very scared and becomes very frightened living at home alone. My instincts tell me that she is at a point where she is not confident about providing for her own health care needs and that is understandable under the circumstances. I think we should keep her in the hospital until this alternative living arrangement can be made with view towards something more long-term, such as [facility] or assisted living. The patient understands, agrees with this plan. OC /[id number]
[2020-01-10] MEDS: Omeprazole 20 MG Cap.CR PO SCH (07:42)
[2020-01-10] MEDS: buPROPion 300 MG Tab.ER PO SCH (07:43)
[2020-01-10] MEDS: Metoclopramide 5 MG Tab PO SCH ×2 (07:43→13:38)
[2020-01-10] MEDS: Metoprolol Succinate 100 MG Tab.ER PO SCH (07:43)
[2020-01-10] MEDS: Benazepril 10 MG Tab PO SCH (07:44)
[2020-01-10] MEDS: Aspirin 325 MG Tab.EC PO SCH (07:44)
[2020-01-10] MEDS: Hydrochlorothiazide 12.5 MG Cap PO SCH (07:44)
[2020-01-10] MEDS: amLODIPine 5 MG Tab PO SCH (07:45)
[2020-01-10] MEDS: atorvaSTATin 40 MG Tab PO SCH (07:45)
[2020-01-10] MEDS: metFORMIN 500 MG Tab PO SCH ×3 (07:46→19:23)
[2020-01-10] MEDS: Levofloxacin/Dextrose 5%-Water 100 ML IV SCH (07:47)
--- NOTE | 2020-01-10 11:52 | PN ---
DATE OF VISIT: 01/10/2020 SUBJECTIVE: Laura had unremarkable night. Her appetite is still not very good, but she is eating and taking adequate liquids p.o. She has not needed any more supplemental IV fluids since yesterday. She received her last dose of antibiotic this morning. She offers no complaints. OBJECTIVE: VITAL SIGNS: She is afebrile. Her blood pressure is 156/77, heart rate is 77, her O2 sats are 97% on O2 per nasal cannula. CHEST: Clear to auscultation. CARDIAC: Regular rate without murmur. ABDOMEN: Soft. LABORATORY DATA: Her urinalysis shows no evidence of UTI at this time. IMPRESSION: Remains stable and afebrile. PLAN: She will be transferred over to Respiratory Care today and tentatively plans are being made for her to be discharged under the care of her granddaughter, who lives in [place]. She is aware of this and agrees. OC /[id number]
[2020-01-10 17:02] VITALS: BP 150/84; PULSE 68
--- NOTE | 2020-01-11 12:30 | DISCH ---
ADMISSION DIAGNOSIS: Acute exacerbation of chronic obstructive pulmonary disease. DISCHARGE DIAGNOSIS: Acute exacerbation of chronic obstructive pulmonary disease. HOSPITAL COURSE: This 74-year-old woman with a history of COPD, on home oxygen was admitted through the emergency room on the above-mentioned date with increased shortness of breath along with some nausea and emesis. Prior to this, she had been treated with Keflex for a UTI, however, had been switched over to levofloxacin when she began to show signs of an upper respiratory infection. She also has had suspected early dementia and it has been noted that she lives alone and at times has become very frightened in the evenings whenever she is not feeling alright and that tends to initiate a cascades of anxiety followed by worsening of symptoms. This has become more and more problematic in recent months. She had developed some coughing paroxysms and developed actually what sounds more like posttussive emesis rather than actual emesis of GI origin. She did have some expiratory wheezes, although she was afebrile on admission and for that reason as well as her poor oral intake and the concern that she may be developing a GI problem, we went ahead and admitted her for treatment for an acute exacerbation of COPD. She was treated with continuation of her levofloxacin for the next 2 days and it would subsequently discontinue. Additionally, she was given DuoNeb treatments and within 24 hours, she was back to baseline with no wheezes and remained afebrile. Yesterday, she was transferred from observation to Respite care and arrangements had been made for her to be discharged under the care of her granddaughter, who was making arrangements for her moving in over the past couple of days. PLAN: She will be discharged to live with her granddaughter. In the meantime, additional options regarding alternative living arrangements will be explored including assisted living [facility]it[facility]iary, etc. OC /[id number]
== END 2020-01-10 18:00 ==
LOC: LB.ED 16:15 → LB.MS 17:35 → UNDOADMOB 18:00
PROVIDERS: ADMIT Surgery; ATTEND Surgery
DX: J44.1 Chronic obstructive pulmonary disease with (acute) exacerbation (principal); N39.0 Urinary tract infection, site not specified; E11.9 Type 2 diabetes mellitus without complications; E78.5 Hyperlipidemia, unspecified; K21.9 Gastro-esophageal reflux disease without esophagitis; E86.0 Dehydration; R29.898 Other symptoms and signs involving the musculoskeletal system; Z79.82 Long term (current) use of aspirin; Z79.899 Other long term (current) drug therapy; Z79.84 Long term (current) use of oral hypoglycemic drugs; Z99.81 Dependence on supplemental oxygen; Z20.828 Contact with and (suspected) exposure to other viral communicable diseases
CPT/HCPCS: 36415; 71046; 80048; 81003; 82962; 85025; 99285; A9270-GY; J0780; J1956; J2405; J7030; J7620-GY; U0002

== ENCOUNTER 2020-01-10 11:57 | Inpatient (IN) | payer SELFPAY ==
[2020-01-10] MEDS ORDERED: LORazepam 2 MG/ML SDV IM PRN (21:14)
[2020-01-10] MEDS ORDERED: Prochlorperazine 10 MG/2 ML SDV IM PRN (21:16)
[2020-01-10] MEDS ORDERED: Ondansetron 4 MG/2 ML SDV IM PRN (21:16)
[2020-01-11] MEDS ORDERED: Metoclopramide 5 MG Tab PO SCH (07:00)
[2020-01-11] MEDS: Omeprazole 20 MG Cap.CR PO SCH ×2 (07:53→09:38)
[2020-01-11] MEDS ORDERED: metFORMIN 500 MG Tab PO SCH (08:00)
[2020-01-11] MEDS ORDERED: buPROPion 300 MG Tab.ER PO SCH (08:00)
[2020-01-11] MEDS ORDERED: Benazepril 10 MG Tab PO SCH (08:00)
[2020-01-11] MEDS ORDERED: atorvaSTATin 40 MG Tab PO SCH (08:00)
[2020-01-11] MEDS ORDERED: amLODIPine 5 MG Tab PO SCH (08:00)
[2020-01-11] MEDS ORDERED: Metoprolol Succinate 100 MG Tab.ER PO SCH (08:00)
[2020-01-11] MEDS ORDERED: Aspirin 325 MG Tab.EC PO SCH (08:00)
[2020-01-11] MEDS ORDERED: Hydrochlorothiazide 12.5 MG Cap PO SCH (08:00)
== END 2020-01-11 11:35 | disposition home or self-care (01) | DRG 951 ==
LOC: LB.MS 18:00
PROVIDERS: ADMIT Surgery; ATTEND Surgery
DX: Z51.5 Encounter for palliative care (principal); J44.1 Chronic obstructive pulmonary disease with (acute) exacerbation; Z75.5 Holiday relief care; F41.9 Anxiety disorder, unspecified; Z87.440 Personal history of urinary (tract) infections
CPT/HCPCS: 82962; A9270-GY; J2060